=== PATIENT | female | born 1970 | race Caucasian/White ===

== ENCOUNTER 2017-11-11 13:02 | Emergency (ER) | payer MEDICAID ==
[2017-11-11] MEDS: LIDOCAINE 1% (MDV) 10 ML INJ INJ (15:59)
[2017-11-11] MEDS: HYDROCODONE/APAP (5/325) TAB PO (16:30)
== END 2017-11-11 16:33 | disposition home or self-care (01) ==
LOC: FTE 13:02
DX: L02.31 Cutaneous abscess of buttock (principal); F17.210 Nicotine dependence, cigarettes, uncomplicated
CPT/HCPCS: 10060; 99284-25

== ENCOUNTER 2018-04-27 14:21 | Emergency (ER) | payer MEDICAID ==
[2018-04-27] MEDS ORDERED: LIDOCAINE 1% (MDV) 10 ML INJ INFIL ×2 (15:59→16:21)
[2018-04-27] MEDS: LIDOCAINE 1% (MDV) 20 ML INJ SC (16:29)
[2018-04-27] MEDS: CEFTRIAXONE 1 GM INJ IM (16:29)
[2018-04-27] MEDS: HYDROCODONE/APAP (5/325) TAB PO (16:29)
== END 2018-04-27 17:03 | disposition home or self-care (01) ==
LOC: FTE 17:03
DX: K04.7 Periapical abscess without sinus (principal); F17.210 Nicotine dependence, cigarettes, uncomplicated
CPT/HCPCS: 96372; 99284-25

== ENCOUNTER 2018-07-24 20:31 | Emergency (ER) | payer MEDICAID ==
[2018-07-24] MEDS ORDERED: LIDOCAINE 1% (MDV) 20 ML INJ SC (22:00)
[2018-07-24] MEDS: LIDOCAINE 1% (MDV) 50 ML INJ SC (22:59)
== END 2018-07-24 23:26 | disposition home or self-care (01) ==
LOC: FTE 20:31
DX: L02.31 Cutaneous abscess of buttock (principal); Z87.891 Personal history of nicotine dependence
CPT/HCPCS: 99283; Z7502

== ENCOUNTER 2019-03-15 17:59 | Emergency (ER) | payer MEDICARE, MEDICAID | END 2019-03-15 19:03 | disposition home or self-care (01) | LOC: FTE 17:59 | DX: L02.31 Cutaneous abscess of buttock (principal); F17.210 Nicotine dependence, cigarettes, uncomplicated | CPT/HCPCS: 99283 ==